=== PATIENT | female | born 1965 | race Caucasian/White ===

== ENCOUNTER → 2016-09-16 | Outpatient (CLI) | payer OTHER ==
--- NOTE | 2016-09-16 09:43 | XR ---
EXAM TYPE: LUMBAR SPINE X RAY SERIES COMPARISON: NONE HISTORY: Low back pain FINDINGS: Alignment is anatomic. The pedicles are intact. The transverse processes are intact. There is no s pondylolysis or spondylolisthesis. Scoliotic curvature of the spine noted with hypertrophic and dege nerative change of the spine. Degenerative disc disease involving all levels with most marked changes involving levels L3-S1. IMPRESSION: 1. Levoscoliosis with multilevel degenerative disc disease.
--- NOTE | 2016-09-16 13:09 | XR ---
EXAMINATION TYPE: XR Hip Bilateral Complete DATE OF EXAM: 09/16/2016 9:26 AM COMPARISON: NONE HISTORY: Bilateral hip pain There is no evidence of erosive change or acute fracture. Mild hypertrophic change of the acetabulum. Nonspherical morphology of the femoral head bilaterally. Impression 1. No evidence of acute fracture or dislocation. 2. Correlate for femoral acetabular impingement.
--- NOTE | 2016-09-17 08:13 | MM ---
Reason for exam: screening (asymptomatic). Last mammogram was performed 1 year and 8 months ago. History: Patient is postmenopausal. Family history of breast cancer in sister at age 39. Benign right mammotome panel of the right breast, October 19, 2012. Took hormonal contraceptives for 6 years beginning at age 22. Physical Findings: A clinical breast exam by your physician is recommended on an annual basis and results should be correlated with mammographic findings. MG Screening Mammo w CAD Bilateral CC and MLO view(s) were taken. Prior study comparison: December 30, 2014, bilateral MG screening mammo w CAD. June 03, 2013, right diagnostic mammogram w/CAD. There are scattered fibroglandular densities. Finding: There are typically benign round calcifications in both breasts. Previous mammotome biopsy in the right breast. Asymmetric breast tissue in the right breast is stable. There is no discrete abnormality. ASSESSMENT: Benign, BI-RAD 2 RECOMMENDATION: Routine screening mammogram of both breasts in 1 year.
--- NOTE | 2016-09-17 08:53 | BD ---
EXAMINATION TYPE: MG DEXA axial skeleton. DATE OF EXAM: 09/16/2016 8:49 AM COMPARISON: NONE CLINICAL HISTORY: Z13.820 SCREENING FOR OSTEOPOROSIS, postmenopausal female Height: 65 Weight: 150 FRAX RISK QUESTIONS: Alcohol (3 or more units per day): NO Family History (Parent hip fracture): YES, BUT NO BROKEN HIPS Glucocorticoids (More than 3mos): NO (Ex: prednisone, prednisolone, methylprednisolone, dexamethasone, and hydrocortisone). History of Fracture in Adulthood: NO Secondary Osteoporosis: NO 1. Type 1 Diabetes: NO 2. Hyperthyroidism: NO 3. Menopause before 45: NO 4. Malnutrition: NO 5. Chronic liver disease: NO Rheumatoid Arthritis: NO Current Tobacco Use: NO RISK FACTORS HISTORY OF: Family History of Osteoporosis: YES, HER MOTHER AND SISTER Smoke tobacco: NO Drink Alcohol: NO Active: YES Diet low in dairy products/other sources of calcium: NO Postmenopausal woman: AT ABOUT 50 YRS OLD Take estrogen and/or progesterone medications: BCP IN THE PAST FOR 6 YRS, NO HORMONES NOW Adrenal Insufficiency: NO MEDICATIONS: Additional Medications: XANAX, MAGNESIUM, CALCIUM, VIT C, MUSCLE RELAXERS, BP MEDS Additional History: ANXIETY, SLEEPING DISORDER EXAM MEASUREMENTS: Bone mineral densitometry was performed using the [employer] System. Bone mineral density as measured about the Lumbar spine is: ----- L1-L4(G/cm2): 1.105 T Score Values are as follows: ----- L1: -1.7 ----- L2: -1.4 ----- L3: -0.2 ----- L4: -1.5 ----- L1-L4: -0.6 Bone mineral density THIS IS HER FIRST BONE DENSITY SCAN.....BASELINE Bone mineral density about the R hip (g/cm2): 1.000 Bone mineral density about the L hip (g/cm2): 0.975 T Score values are as follows: -----R Neck: -0.3 -----L Neck: -0.5 -----R Intertrochanter: -0.3 -----L Intertrochanter: -1.1 Bone mineral density BASELINE STUDY TODAY FRAX %'S: FOR MAJOR OSTEOPOROSIS FX: 3.6%......FOR HIP FX: 0.1%.....PROBABILITY OF FX IN 10 Y RS TIME IMPRESSION: Osteopenia (T Score between -2.5 and -1 as noted by T score values at 2 consecutive levels in the low back. There is slightly increased risk of fracture and the patient may be considered for treatment. Re-Screen 1-2 years. NOTE: T-SCORE=SD OF THE YOUNG ADULT MEAN.
== END | disposition home or self-care (01) ==
LOC: RADMAMWWP 08:33
PROVIDERS: ATTEND Family Medicine
DX: Z12.31 Encounter for screening mammogram for malignant neoplasm of breast (principal); Z13.820 Encounter for screening for osteoporosis; M51.36 Other intervertebral disc degeneration, lumbar region; M54.5 Low back pain; M25.559 Pain in unspecified hip
CPT/HCPCS: 72110; 73521; 77080; G0202

== ENCOUNTER 2016-11-10 09:16 | Emergency (ER) | payer OTHER ==
[2016-11-10 09:31] VITALS: BP 120/66; PULSE 59; RESP 18; TEMP 97
--- NOTE | 2016-11-10 09:43 | ED ---
Skin/Abscess/FB HPI - General Chief complaint: Skin/Abscess/Foreign Body Stated complaint: RASH ON ARMS Time Seen by Provider: 11/10/16 09:33 Source: patient Mode of arrival: ambulatory Limitations: no limitations - History of Present Illness Initial comments: 51-year-old female patient presents to emergency department today for evaluation of a rash to the volar aspect of her right forearm. Patient states she woke this morning with a rash present. She states it is itchy. Patient is concerned it may be flea bites or bedbugs. Patient states that over the last couple of months she's had different areas similar to this pop up over different areas of her body and then resolve. Patient denies any use of Benadryl or creams. Results symptoms. She denies any shortness of breath or wheezing. She denies any other current areas of rash other than her arm. - Related Data Home Medications Medication Instructions Recorded Confirmed ALPRAZolam [Xanax] 0.5 mg PO DAILY PRN 11/10/16 11/10/16 Iron 18 mg PO DAILY 11/10/16 11/10/16 Previous Rx's Medication Instructions Recorded Triamcinolone 0.1% Cream [Kenalog] 1 applicatio TOPICAL BID #30 gram 11/10/16 Allergies Allergy/AdvReac Type Severity Reaction Status Date / Time No Known Allergies Allergy Verified 11/10/16 09:30 Review of Systems ROS Statement: Those systems with pertinent positive or pertinent negative responses have been documented in the HPI. ROS Other: All systems not noted in ROS Statement are negative. Past Medical History Past Medical History: No Reported History History of Any Multi-Drug Resistant Organisms: None Reported Past Surgical History: Section Past Psychological History: Anxiety Smoking Status: Never smoker Past Alcohol Use History: None Reported Past Drug Use History: None Reported General Exam Limitations: no limitations General appearance: alert, in no apparent distress Eye exam: Present: normal appearance, PERRL, EOMI. Absent: scleral icterus, conjunctival injection, periorbital swelling ENT exam: Present: normal exam, mucous membranes moist Neck exam: Present: normal inspection. Absent: tenderness, meningismus, lymphadenopathy Respiratory exam: Present: normal lung sounds bilaterally. Absent: respiratory distress, wheezes, rales, rhonchi, stridor Extremities exam: Present: other (Rash to the volar aspect of right forearm, clustered area of hives, no surrounding erythema) Neurological exam: Present: alert, oriented X3, CN II-XII intact Psychiatric exam: Present: anxious Skin exam: Present: warm, dry, intact, normal color, rash (Right forearm as described above) Course Vital Signs 11/10/16 09:26 Temperature 97.0 F L Pulse Rate 59 L Respiratory 18 Rate Blood Pressure 120/66 O2 Sat by Pulse 99 Oximetry Medical Decision Making - Medical Decision Making 51-year-old female presented emergency from for rash. Patient appears to have contact dermatitis the right forearm. Patient we placed on try someone cream. Return parameters were discussed. Disposition Clinical Impression: Contact dermatitis Disposition: HOME SELF-CARE Condition: Stable Instructions: Contact Dermatitis (ED) Additional Instructions: Please return to the Emergency Department if symptoms worsen or any other concerns. Prescriptions: Triamcinolone 0.1% Cream [Kenalog] 1 applicatio TOPICAL BID #30 gram Time of Disposition: 09:56
== END 2016-11-10 10:03 | disposition home or self-care (01) ==
LOC: EC 09:16
DX: L25.9 Unspecified contact dermatitis, unspecified cause (principal); F41.9 Anxiety disorder, unspecified; Z79.899 Other long term (current) drug therapy
CPT/HCPCS: 99282

== ENCOUNTER 2016-11-29 23:04 | Emergency (ER) | payer OTHER ==
[2016-11-29 23:25] VITALS: BP 136/64; PULSE 89; RESP 20; TEMP 98.2
--- NOTE | 2016-11-29 23:55 | ED ---
General Adult HPI - General Chief complaint: Skin/Abscess/Foreign Body Stated complaint: Finger brusing/pain Time Seen by Provider: 11/29/16 23:25 Source: patient, RN notes reviewed Mode of arrival: ambulatory Limitations: no limitations - History of Present Illness Initial comments: This is a 51-year-old female presents emergency Department with some bruising around the PIP joint of the fourth left finger. Patient states she doesn't remember any trauma but the area is tender to palpation. Patient denies any other finger pain she denies any other joint pain. Patient does not wear any jewelry on that hand. There is no swelling and there is no area of redness. There is ecchymosis on top of the knuckle - Related Data Home Medications Medication Instructions Recorded Confirmed ALPRAZolam [Xanax] 0.5 mg PO DAILY PRN 11/10/16 11/29/16 Ascorbic Acid [Vitamin C] 500 mg PO DAILY 11/29/16 11/29/16 Cholecalciferol [Vitamin D3] 400 unit PO DAILY 11/29/16 11/29/16 Ferrous Sulfate [Feosol] 325 mg PO DAILY 11/29/16 11/29/16 Hydrochlorothiazide [Hydrodiuril] 25 mg PO DAILY 11/29/16 11/29/16 Allergies Allergy/AdvReac Type Severity Reaction Status Date / Time No Known Allergies Allergy Verified 11/29/16 23:35 Review of Systems ROS Statement: Those systems with pertinent positive or pertinent negative responses have been documented in the HPI. ROS Other: All systems not noted in ROS Statement are negative. Past Medical History Past Medical History: No Reported History History of Any Multi-Drug Resistant Organisms: None Reported Past Surgical History: Section Past Psychological History: Anxiety Smoking Status: Never smoker Past Alcohol Use History: None Reported Past Drug Use History: None Reported General Exam - General Exam Comments Initial Comments: GENERAL Patient is well-developed and well-nourished. Patient is in mild distress. EYES Patient's pupils are equal and round. Extraocular motion is intact SKIN Unremarkable NEURO The patient is alert and oriented 3 PYSCH Patient has normal interpersonal interactions. MUSCULOSKELETAL The left fourth PIP joint is ecchymotic on the dorsal aspect. It is also tender to palpation. Limitations: no limitations Course Vital Signs 11/29/16 23:23 Temperature 98.2 F Pulse Rate 89 Respiratory 20 Rate Blood Pressure 136/64 O2 Sat by Pulse 98 Oximetry Medical Decision Making - Medical Decision Making X-ray of the finger shows no acute injury. Disposition Clinical Impression: Finger sprain Disposition: HOME SELF-CARE Condition: Good Instructions: Finger Sprain (ED) Additional Instructions: Patient should take Motrin 600 mg every 6 hours Referrals: Katerina Rush MD [Primary Care Provider] - 1-2 days Time of Disposition: 00:13
--- NOTE | 2016-11-30 00:09 | XR ---
EXAMINATION TYPE: XR finger LT DATE OF EXAM: 11/30/2016 12:03 AM COMPARISON: NONE HISTORY: Pain TECHNIQUE: 2 views FINDINGS: I see no fracture nor dislocation. Joint spaces are fairly normal. IMPRESSION: Negative left ring finger exam.
== END 2016-11-30 00:29 | disposition home or self-care (01) ==
LOC: EC 23:04
DX: S63.615A Unspecified sprain of left ring finger, initial encounter (principal); Z79.899 Other long term (current) drug therapy; X58.XXXA Exposure to other specified factors, initial encounter
CPT/HCPCS: 99283

== ENCOUNTER 2017-03-15 13:34 | Emergency (ER) | payer OTHER ==
[2017-03-15 13:44] VITALS: BP 104/62; PULSE 71; RESP 20; TEMP 98.6
--- NOTE | 2017-03-15 14:01 | ED ---
Skin/Abscess/FB HPI - General Chief complaint: Skin/Abscess/Foreign Body Stated complaint: Cat Scratch and Bite Time Seen by Provider: 03/15/17 13:48 Source: patient, RN notes reviewed Mode of arrival: ambulatory Limitations: no limitations - History of Present Illness Initial comments: 52-year-old female presents emergency Department chief complaint cat scratch to her left foot. Patient states this was her cat that scratched her yesterday. That she does not believe the cat bit her she's only noticed scratch espino. Patient states she is up-to-date on tetanus and her cat is up-to-date on vaccines. Patient has NO KNOWN DRUG ALLERGIES. She noticed increase redness and swelling today. Patient has no streaking redness up her leg and no pain in her groin or swelling. - Related Data Home Medications Medication Instructions Recorded Confirmed Ascorbic Acid [Vitamin C] 500 mg PO DAILY 11/29/16 03/15/17 Cholecalciferol [Vitamin D3] 400 unit PO DAILY 11/29/16 03/15/17 Ferrous Sulfate [Feosol] 325 mg PO DAILY 11/29/16 03/15/17 Hydrochlorothiazide [Hydrodiuril] 25 mg PO DAILY 11/29/16 03/15/17 Previous Rx's Medication Instructions Recorded Acetaminophen-Codeine 300-30mg 1 tab PO Q4H PRN #20 tablet 03/15/17 [Tylenol #3] Azithromycin [Zithromax Z-pack] 0 mg PO DIRECTED #1 pack 03/15/17 Ibuprofen [Motrin] 600 mg PO Q8HR PRN #30 tab 03/15/17 Sulfamethox-Tmp 800-160Mg [Bactrim 1 each PO Q12HR #20 tab 03/15/17 Ds] Allergies Allergy/AdvReac Type Severity Reaction Status Date / Time No Known Allergies Allergy Verified 03/15/17 13:44 Review of Systems ROS Statement: Those systems with pertinent positive or pertinent negative responses have been documented in the HPI. ROS Other: All systems not noted in ROS Statement are negative. Past Medical History Past Medical History: No Reported History History of Any Multi-Drug Resistant Organisms: None Reported Past Surgical History: Section Past Psychological History: Anxiety Smoking Status: Never smoker Past Alcohol Use History: None Reported Past Drug Use History: None Reported General Exam Limitations: no limitations General appearance: alert, in no apparent distress Head exam: Present: atraumatic, normocephalic, normal inspection Respiratory exam: Present: normal lung sounds bilaterally. Absent: respiratory distress, wheezes, rales, rhonchi, stridor Cardiovascular Exam: Present: regular rate, normal rhythm, normal heart sounds. Absent: systolic murmur, diastolic murmur, rubs, gallop, clicks Extremities exam: Present: other (Left foot there is multiple scratch espino noted, erythema mild warmth there is no obvious Bites noted.) Skin exam: Present: warm, dry Course Vital Signs 03/15/17 13:41 Temperature 98.6 F Pulse Rate 71 Respiratory 20 Rate Blood Pressure 104/62 O2 Sat by Pulse 98 Oximetry Medical Decision Making - Medical Decision Making 52-year-old female presented emergency department for Scratch her left foot. Patient be treated with azithromycin for possible Scratch fever. Patient will be also given Bactrim to cover for any staph infections at this time. Return parameters discussed. Case discussed Dr. Prieto Disposition Clinical Impression: Infection of cat scratch wound Disposition: HOME SELF-CARE Condition: Stable Instructions: Cat Scratch Disease (ED) Additional Instructions: Please return to the Emergency Department if symptoms worsen or any other concerns. Prescriptions: Acetaminophen-Codeine 300-30mg [Tylenol #3] 1 tab PO Q4H PRN #20 tablet PRN Reason: pain Azithromycin [Zithromax Z-pack] 0 mg PO DIRECTED #1 pack Ibuprofen [Motrin] 600 mg PO Q8HR PRN #30 tab PRN Reason: Pain Sulfamethox-Tmp 800-160Mg [Bactrim Ds] 1 each PO Q12HR #20 tab Referrals: None,Stated [Primary Care Provider] - 1-2 days Time of Disposition: 14:01
== END 2017-03-15 14:08 | disposition home or self-care (01) ==
LOC: EC 13:34
DX: S90.812A Abrasion, left foot, initial encounter (principal); Z79.899 Other long term (current) drug therapy; W55.03XA Scratched by cat, initial encounter
CPT/HCPCS: 99282

== ENCOUNTER → 2017-04-07 | Outpatient (CLI) | payer SELFPAY ==
[2017-04-07 17:41] LABS: Basophils % (A) 0 %; CH 27.6; CHCM 32.7; Eosinophils # (A) 0.1 k/uL (0-0.7); Eosinophils % (A) 2 %; HCT 40.2 % (34.0-46.0); HDW 2.57; HGB 13.4 gm/dL (11.4-16.0); Luc # (Auto) 0.16; Luc % (Auto) 2; Lymphocytes # (A) 1.7 k/uL (1.0-4.8); Lymphocytes % (A) 25 %; MCH 28.2 pg (25.0-35.0); MCHC 33.2 g/dL (31.0-37.0); MCV 84.8 fL (80.0-100.0); Mean Platelet Volume 9.5; Monocytes # (A) 0.4 k/uL (0-1.0); Monocytes % (A) 6 %; Neutrophils # (A) 4.3 k/uL (1.3-7.7); Neutrophils % (A) 64 %; RBC 4.75 m/uL (3.80-5.40); RDW 14.3 % (11.5-15.5); WBC 6.7 k/uL (3.8-10.6); WBC (Perox) 7.11
[2017-04-07 17:50] LABS: ALT 29 U/L (9-52); AST 20 U/L (14-36); Alkaline Phosphatase 91 U/L (38-126); Anion Gap 10 mmol/L; Blood Urea Nitrogen 14 mg/dL (7-17); C Reactive Protein 7.7 mg/L (<10.0); Carbon Dioxide 26 mmol/L (22-30); Chloride 105 mmol/L (98-107); Glucose 91 mg/dL (74-99); Non-African American GFR(MDRD) >60 (>60 ml/min/1.73 sqM); Potassium 4.4 mmol/L (3.5-5.1); Sodium 141 mmol/L (137-145); Total Bilirubin 0.2 mg/dL (0.2-1.3); Total Protein 6.9 g/dL (6.3-8.2)
== END | disposition home or self-care (01) ==
LOC: LABWHC1 17:09
PROVIDERS: ATTEND Family Medicine
DX: E56.9 Vitamin deficiency, unspecified (principal); M79.1 Myalgia; D64.9 Anemia, unspecified; R60.9 Edema, unspecified
CPT/HCPCS: 36415; 80053; 82306; 83001; 84443; 85025; 86140

== ENCOUNTER → 2024-12-13 | Outpatient (CLI) | payer OTHER ==
--- NOTE | 2024-12-14 07:49 | MM ---
Reason for Exam: Screening (asymptomatic). Last mammogram was performed 8 year(s) and 3 month(s) ago. Patient History: Menarche at age 13. First Full-Term at age 28. Postmenopausal. Hormonal Contraceptives for 6 years from age 22 until age 28. 10/19/2012, Benign Core Biopsy on the right side. Sister had breast cancer, age 39. Risk Values: Jahaira 5 year model risk: 3.3%. NCI Lifetime model risk: 18.8%. Prior Study Comparison: 06/03/2013 Right Diagnostic Mammogram, [facility]. 12/30/2014 Bilateral Screening Mammogram, [facility]. 09/16/2016 Bilateral Screening Mammogram, [facility]. Tissue Density: The breasts are almost entirely fatty. Findings: Analyzed By CAD. Right breast biopsy clip. Right breast: There is no suspicious group of microcalcifications or new suspicious mass. Left breast: There is no suspicious group of microcalcifications or new suspicious mass. Overall Assessment: Negative, BI-RAD 1 Management: Screening Mammogram of both breasts in [address] [facility] will attempt to contact patient to return for supplemental views and ultrasound if indicated. Patient should continue monthly self-breast exams. A clinical breast exam by your physician is recommended on an annual basis. This exam should not preclude additional follow-up of suspicious palpable abnormalities. Note on Jahaira scores and lifetime risk: 1. A Jahaira score greater than 3% is considered moderate risk. If this is the case, consider specialist referral to assess eligibility for a risk reducing agent. 2. If overall lifetime risk for the development of breast cancer is 20% or higher, the patient may qualify for future screening with alternating mammogram and breast MRI. [facility], , 12/14/2024 7:47 AM. Electronically signed and approved by: Aristides Hyman DO
== END | disposition home or self-care (01) ==
LOC: RADMAMWWP 15:36
PROVIDERS: ATTEND Family Medicine
DX: Z12.31 Encounter for screening mammogram for malignant neoplasm of breast (principal); R92.313 Mammographic fatty tissue density, bilateral breasts; Z78.0 Asymptomatic menopausal state; Z80.3 Family history of malignant neoplasm of breast; Z92.0 Personal history of contraception
CPT/HCPCS: 77067

== ENCOUNTER 2025-01-14 | Emergency (ER) | payer OTHER ==
--- NOTE | 2025-01-14 00:45 | ED ---
ENT HPI - General Chief complaint: Dental/Oral Stated complaint: Dental Pain Time Seen by Provider: 01/14/25 00:12 Source: patient, RN notes reviewed Mode of arrival: ambulatory Limitations: no limitations - History of Present Illness Initial comments: 59-year-old female presents emergency room with complaints of right frontal dental pain with radiation into her ear has been ongoing over the past 2 weeks. Patient states that she has a fractured tooth and is scheduled for appoint with her dentist in the next 2 weeks. States that the pain worsened tonight. Denies fevers, chills, dysphagia. - Related Data Home Medications Medication Instructions Recorded Confirmed Ascorbic Acid [Vitamin C] 500 mg PO DAILY 11/29/16 03/15/17 Cholecalciferol [Vitamin D3] 400 unit PO DAILY 11/29/16 03/15/17 Ferrous Sulfate [Feosol] 325 mg PO DAILY 11/29/16 03/15/17 hydroCHLOROthiazide [Hydrodiuril] 25 mg PO DAILY 11/29/16 03/15/17 Previous Rx's Medication Instructions Recorded Acetaminophen-Codeine 300-30mg 1 tab PO Q4H PRN #20 tablet 03/15/17 [Tylenol #3] Azithromycin [Zithromax Z-pack (6 0 mg PO DIRECTED #1 pack 03/15/17 tabs)] Ibuprofen [Motrin] 600 mg PO Q8HR PRN #30 tab 03/15/17 Sulfamethox-Tmp 800-160Mg [Bactrim 1 each PO Q12HR #20 tab 03/15/17 Ds] clindamycin HCL 300 mg PO QID #40 cap 01/14/25 Allergies Allergy/AdvReac Type Severity Reaction Status Date / Time No Known Allergies Allergy Verified 01/14/25 00:09 Review of Systems ROS Statement: Those systems with pertinent positive or pertinent negative responses have been documented in the HPI. ROS Other: All systems not noted in ROS Statement are negative. Past Medical History Past Medical History: GERD/Reflux History of Any Multi-Drug Resistant Organisms: None Reported Past Surgical History: Section Past Psychological History: Anxiety Smoking Status: Never smoker Past Alcohol Use History: None Reported Past Drug Use History: None Reported General Exam Limitations: no limitations General appearance: alert, in no apparent distress Expanded Teeth exam: Present: dental caries, fractured tooth #, dental tenderness # Neck exam: Present: normal inspection. Absent: tenderness, meningismus, lymphadenopathy Respiratory exam: Present: normal lung sounds bilaterally. Absent: respiratory distress, wheezes, rales, rhonchi, stridor Cardiovascular Exam: Present: regular rate, normal rhythm, normal heart sounds. Absent: systolic murmur, diastolic murmur, rubs, gallop, clicks GI/Abdominal exam: Present: soft, normal bowel sounds. Absent: distended, tenderness, guarding, rebound, rigid Course Vital Signs 01/14/25 01/14/25 00:09 00:56 Temperature 98.0 F 98.2 F Pulse Rate 64 69 Respiratory 18 19 Rate Blood Pressure 155/90 144/74 O2 Sat by Pulse 98 99 Oximetry Medical Decision Making - Medical Decision Making Was pt. sent in by a medical professional or institution (, PA, MUSIC RESEARCHER, urgent care, hospital, or [place] health care facility...) When possible be specific @ -No Did you speak to anyone other than the patient for history (EMS, parent, family, police, friend...)? What history was obtained from this source @ -No Did you review nursing and triage notes (agree or disagree)? Why? @ -I reviewed and agree with nursing and triage notes Were old charts reviewed (outside hosp., previous admission, EMS record, old EKG, old radiological studies, urgent care reports/EKG's, [place] health care facility records)? Report findings @ -No old charts were reviewed Differential Diagnosis (chest pain, altered mental status, abdominal pain women, abdominal pain men, vaginal bleeding, weakness, fever, dyspnea, syncope, headache, dizziness, GI bleed, back pain, seizure, CVA, palpatations, mental he alth, musculoskeletal)? @ -Fractured tooth, pulpitis, dental abscess, this list is not all inclusive EKG interpreted by me (3pts min.). @ -None X-rays interpreted by me (1pt min.). @ -None done CT interpreted by me (1pt min.). @ -None done U/S interpreted by me (1pt. min.). @ -None done What testing was considered but not performed or refused? (CT, X-rays, U/S, labs)? Why? @ -None What meds were considered but not given or refused? Why? @ -None Did you discuss the management of the patient with other professionals (professionals i.e. , PA, MUSIC RESEARCHER, lab, RT, psych nurse, social work therapist, chain maker loom control, t eacher, business development officer, complex case manager)? Give summary @ -No Was smoking cessation discussed for >3mins.? @ -No Was critical care preformed (if so, how long)? @ -No Were there social determinants of health that impacted care today? How? (Homelessness, low income, unemployed, alcoholism, drug addiction, transportation, low edu. Level, literacy, decrease access to med. care, shelter, rehab)? @ -No Was there de-escalation of care discussed even if they declined (Discuss DNR or withdrawal of care, Hospice)? DNR status @ -No What co-morbidities impacted this encounter? (DM, HTN, Smoking, COPD, CAD, Cance r, CVA, ARF, Chemo, Hep., AIDS, mental health diagnosis, sleep apnea, morbid obesity)? @ -None Was patient admitted / discharged? Hospital course, mention meds given and route, prescriptions, significant lab abnormalities, going to OR and other pertinent info. @ -Discharge. 59-year-old female presenting with concerns of dental pain. There is known fractured tooth with no signs of dental abscess. Patient is provided with antibiotics and pain control. Recommend follow-up as scheduled with dentist. Case discussed with Dr. cárdenas Undiagnosed new problem with uncertain prognosis? @ -No Drug Therapy requiring intensive monitoring for toxicity (Heparin, Nitro, Insulin, Cardizem)? @ -No Were any procedures done? @ -No Diagnosis/symptom? @ -dental pain, fractured tooth Acute, or Chronic, or Acute on Chronic? @ -acute Uncomplicated (without systemic symptoms) or Complicated (systemic symptoms)? @ -uncomplicated Side effects of treatment? @ -No Exacerbation, Progression, or Severe Exacerbation? @ -No Poses a threat to life or bodily function? How? (Chest pain, [place], [place], pneumonia, PE, COPD, DKA, ARF, appy, cholecystitis, CVA, Diverticulitis, Homicidal, Suicidal, threat to staff... and all critical care pts) @ -No Disposition Clinical Impression: Fracture, tooth, Pain, dental Disposition: HOME SELF-CARE Condition: Stable Instructions (If sedation given, give patient instructions): Toothache (ED) Additional Instructions: Please return to the Emergency Department if symptoms worsen or any other concerns. Prescriptions: clindamycin HCL 300 mg PO QID #40 cap Is patient prescribed a controlled substance at d/c from ED?: No Referrals: None,Stated [Primary Care Provider] - 1-2 days Time of Disposition: 00:45
[2025-01-14] MEDS: CLINDAMYCIN 150 MG CAP PO STA (00:53)
[2025-01-14] MEDS: Acetaminophen-Codeine 300-30mg TAB PO STA (00:53)
[2025-01-14] MEDS: ACET/COD 300 MG/30 MG STARTER PACK 6 TAB BTL PO STA (00:53)
[2025-01-14 00:57] VITALS: BP 144/74; PULSE 69; RESP 19; TEMP 98.2
== END 2025-01-14 01:18 | disposition home or self-care (01) ==
LOC: EC
DX: S02.5XXA Fracture of tooth (traumatic), initial encounter for closed fracture (principal); K08.89 Other specified disorders of teeth and supporting structures; X58.XXXA Exposure to other specified factors, initial encounter
CPT/HCPCS: 99282